=== PATIENT | male | born 1970 ===

== ENCOUNTER 2016-10-27 19:31 | Emergency (ER) | payer OTHER ==
[2016-10-27 19:53] VITALS: TEMP 98.6
[2016-10-27] MEDS ORDERED: ALPRAZOLAM 0.25 MG TAB PO SCH (19:55)
[2016-10-27] MEDS ORDERED: ALPRAZOLAM 0.25 MG TAB ONE (19:59)
[2016-10-27 20:37] LABS: BASOPHILS % (AUTO) 1 % (0-3); EOSINOPHILS % (AUTO) 1 % (0-9); HEMATOCRIT 39 % (39-53); MEAN CORPUSCULAR HGB CONC 34.1 gm/dl (32.0-36.0); MONOCYTES % (AUTO) 6.9 % (0-12); NEUTROPHILS % (AUTO) 74.7 % (37-80)
[2016-10-27 20:54] LABS: ALBUMIN 3.8 gm/dl (3.4-5.0); ALT 16 IU/L (14-63); CALCIUM 8.2 mg/dl (8.5-10.1); GLOM FILT RATE 72 mL/min (>60); POTASSIUM 3.3 mMol/L (3.5-5.1); SODIUM 140 mMol/L (136-145)
[2016-10-27 22:08] VITALS: BP 88/55; PULSE 78; RESP 16; O2SAT 92
== END 2016-10-27 21:53 | disposition home or self-care (01) ==
LOC: ED 19:31
DX: F41.0 Panic disorder [episodic paroxysmal anxiety] (principal); R07.9 Chest pain, unspecified; R06.02 Shortness of breath; R20.0 Anesthesia of skin; I25.2 Old myocardial infarction; Z95.1 Presence of aortocoronary bypass graft
CPT/HCPCS: 71010; 80053; 84484; 85025; 93005; 99284

== ENCOUNTER 2018-01-20 13:28 | Emergency (ER) | payer OTHER ==
[2018-01-20] MEDS ORDERED: ASPIRIN 81 MG CHEWABLE CTB PO STA (13:36)
[2018-01-20] MEDS ORDERED: NITROGLYCERIN 0.4 MG TAB SL PRN (13:36)
[2018-01-20] MEDS ORDERED: SODIUM CHLORIDE 0.9% FLUSH 10 ML SOL IV PRN (13:36)
[2018-01-20] MEDS ORDERED: ASPIRIN 81 MG CHEWABLE CTB ONE (13:37)
[2018-01-20 13:48] LABS: BASOPHILS % (AUTO) 2 % (0-3); EOSINOPHILS % (AUTO) 2 % (0-9); HEMATOCRIT 44 % (39-53); MEAN CORPUSCULAR HGB CONC 34.2 gm/dl (32.0-36.0); MEAN CORPUSCULAR VOLUME 92 fL (80-100); NEUTROPHILS % (AUTO) 60.1 % (37-80)
[2018-01-20 13:51] VITALS: RESP 16; TEMP 98
[2018-01-20 14:08] LABS: BLOOD UREA NITROGEN 21 mg/dl (7-18); CALCIUM 8.6 mg/dl (8.5-10.1); CREATININE 1.19 mg/dl (0.80-1.30); GLOM FILT RATE 66 mL/min (>60); GLUCOSE 129 mg/dl (74-106); POTASSIUM 3.6 mMol/L (3.5-5.1); SODIUM 140 mMol/L (136-145)
[2018-01-20 14:50] VITALS: BP 115/67; PULSE 68; O2SAT 97
== END 2018-01-20 14:45 | disposition home or self-care (01) ==
LOC: ED 13:28
DX: R07.9 Chest pain, unspecified (principal); R06.02 Shortness of breath; I45.10 Unspecified right bundle-branch block
CPT/HCPCS: 71045; 80048; 82550; 84484; 85025; 85610; 85730; 93005; 99284